=== PATIENT | female | born 1935 | race Caucasian/White ===

== ENCOUNTER 2018-01-22 19:49 | Emergency (ER) | payer MEDICARE ==
[~2018-01-22] VITALS: Ht 152.4 cm; Wt 52.2 kg
[2018-01-22] MEDS ORDERED: COLACE100 MG PO (20:24)
[2018-01-22] MEDS ORDERED: CLARITIN-D 241 EACH PO (20:24)
== END 2018-01-22 20:17 | disposition home or self-care (01) ==
LOC: FSED 19:49
DX: N30.01 Acute cystitis with hematuria (principal); I10 Essential (primary) hypertension
CPT/HCPCS: 81003; 99282